=== PATIENT | female | born 1975 | race Caucasian/White ===

== ENCOUNTER 2020-08-09 17:52 | Emergency (ER) | payer BC ==
[2020-08-09] MEDS ORDERED: Ibuprofen 800 MG TAB ONE (18:25)
--- NOTE | 2020-08-09 19:38 | RAD ---
RIGHT ANKLE: 08/09/20 Three views. HISTORY: Injury. Soft tissue swelling is noted laterally. No evidence of fracture. IMPRESSION: No evidence of fracture. POS: [id number]
== END 2020-08-09 18:48 | disposition home or self-care (01) ==
LOC: MADERS 17:52
DX: S93.401A Sprain of unspecified ligament of right ankle, initial encounter (principal); F41.9 Anxiety disorder, unspecified; R26.89 Other abnormalities of gait and mobility; Z79.899 Other long term (current) drug therapy; X50.1XXA Overexertion from prolonged static or awkward postures, initial encounter

== ENCOUNTER 2023-11-04 11:20 | Emergency (ER) | payer BC ==
[2023-11-04] MEDS ORDERED: Ipratropium/Albuterol 3 ML NEB ONE (12:10)
== END 2023-11-04 12:24 | disposition home or self-care (01) ==
LOC: MADERS 11:20
DX: J11.1 Influenza due to unidentified influenza virus with other respiratory manifestations (principal)
CPT/HCPCS: 71046; J7620

== ENCOUNTER 2025-01-31 11:30 | Emergency (ER) | payer BC ==
[2025-01-31 11:53] LABS: Bilirubin Negative (Negative); Blood, Urine Negative (Negative); Glucose, Urine (Dipstick) Negative (Negative); Ketone, Urine Negative (Negative); Leukocyte Negative (Negative); Nitrite Negative (Negative); Protein, Urine (Dipstick) 30 mg/dL (Neg-Trace); pH, Urine 7.5 (5.0-9.0)
[2025-01-31 11:59] LABS: Bacteria/HPF 1+ HPF (None Seen); CAUTI Indications for Culture Dysuria,urgency,freq; Clarity Hazy (Clear); RBC/HPF 0-3 HPF (0-3); WBC/HPF 0-3 HPF (0-3)
[2025-01-31 12:00] LABS: Urine Culture Reflex No No
== END 2025-01-31 12:21 | disposition home or self-care (01) ==
LOC: MADERS 11:30
DX: N39.0 Urinary tract infection, site not specified (principal)
CPT/HCPCS: 81001; 99283